=== PATIENT | male | born 1985 | race Caucasian/White ===

== ENCOUNTER → 2016-11-30 | Outpatient (CLI) | payer OTHER | LOC: BMCIMAGING 12:39 | PROVIDERS: ATTEND Family Medicine | DX: N50.89 Other specified disorders of the male genital organs (principal) ==

== ENCOUNTER 2018-07-13 21:12 | Emergency (ER) | payer BC ==
[2018-07-13] MEDS ORDERED: DIAZEPAM 5 MG TAB PO ONE (21:58)
--- NOTE | 2018-07-13 22:02 | EDPHY ---
H & P Stated Complaint: Back Pain Time Seen by Provider: 07/13/18 21:53 HPI/ROS: CHIEF COMPLAINT: Low back pain HISTORY OF PRESENT ILLNESS: Patient is a 33-year-old man who comes to the emergency department complaining of low back pain that began this morning and has worsened gradually throughout the day. He states that he does a lot of sitting at his desk and often has a stiff back. It seemed to hurt worse as he got out of the car today. No fever. No recent trauma. No numbness or weakness. No radiation of the pain down his legs. No immuno compromising conditions or practices. No saddle anesthesia. No bowel or bladder abnormalities. No dysuria or hematuria. No radiation of the pain to his abdomen or groin. Severity: Moderate Modifying factors: None REVIEW OF SYSTEMS: Constitutional: denies: chills, fever, recent illness, recent injury EENTM: denies: blurred vision, double vision, nose congestion Respiratory: denies: cough, shortness of breath Cardiac: denies: chest pain, irregular heart rate, lightheadedness, palpitations Gastrointestinal/Abdominal: denies: abdominal pain, diarrhea, nausea, vomiting, blood streaked stools Genitourinary: denies: dysuria, frequency, hematuria, pain Musculoskeletal: denies: joint pain, muscle pain Skin: denies: lesions, rash, jaundice, bruising Neurological: denies: headache, numbness, paresthesia, tingling, dizziness, weakness Hematologic/Lymphatic: denies: blood clots, easy bleeding, easy bruising Immunologic/allergic: denies: HIV/AIDS, transplant 10 systems reviewed and negative except as noted EXAM: GENERAL: Well-appearing, well-nourished and in no acute distress. HEAD: Atraumatic, normocephalic. EYES: Pupils equal round and reactive to light, extraocular movements intact, sclera anicteric, conjunctiva are normal. ENT: TMs normal, nares patent, oropharynx clear without exudates. Moist mucous membranes. NECK: Normal range of motion, supple without lymphadenopathy or JVD. LUNGS: Breath sounds clear to auscultation bilaterally and equal. No wheezes rales or rhonchi. HEART: Regular rate and rhythm without murmurs, rubs or gallops. ABDOMEN: Soft, nontender, normoactive bowel sounds. No guarding, no rebound. No masses appreciated. BACK: No CVA tenderness, no spinal tenderness, step-offs or deformities EXTREMITIES: Normal range of motion, no pitting or edema. No clubbing or cyanosis. NEUROLOGICAL: Cranial nerves II through XII grossly intact. Normal speech, normal gait is some mild pain. 5/5 strength, normal movement in all extremities , normal sensation, normal reflexes PSYCH: Normal mood, normal affect. SKIN: Warm, dry, normal turgor, no visible rashes or lesions. Source: Patient Exam Limitations: No limitations - Personal History Current Tetanus/Diphtheria Vaccine: Unsure Current Tetanus Diphtheria and Acellular Pertussis (TDAP): Unsure - Medical/Surgical History Hx Asthma: No Hx Chronic Respiratory Disease: No Hx Diabetes: No Hx Cardiac Disease: No Hx Renal Disease: No Hx Cirrhosis: No Hx Alcoholism: No Hx HIV/AIDS: No Hx Splenectomy or Spleen Trauma: No Other PMH: DENIES - Family History Significant Family History: No pertinent family hx - Social History Smoking Status: Former smoker Alcohol Use: None Constitutional: Initial Vital Signs Temperature (C) 36.7 C 07/13/18 21:15 Heart Rate 62 07/13/18 21:15 Respiratory Rate 16 07/13/18 21:15 Blood Pressure 114/66 07/13/18 21:15 O2 Sat (%) 98 07/13/18 21:15 O2 Delivery Mode Room Air Allergies/Adverse Reactions: No Known Allergies Allergy (Verified 07/13/18 21:14) Home Medications: Medication Instructions Recorded NK [No Known Home Meds] 07/13/18 Medical Decision Making - Diagnostics Imaging Results: Imaging Impressions Lumbar Spine X-Ray 07/13/18 21:59 Impression: Unremarkable lumbar spine radiograph. Imaging: Discussed imaging studies w/ manager call center Radiologist ED Course/Re-evaluation: The patient has declined his Valium. His x-rays reassuring. He will go home take ibuprofen. He is ambulating without difficulty. Discussed indications for returning. Differential Diagnosis: Partial list of the Differential diagnosis considered include but were not limited to; muscle strain, contusion and although unlikely based on the history and physical exam, I also considered radiculopathy, cauda equina, infection, cancer, fracture. I discussed these differential diagnoses and the plan with the patient as well as the usual and expected course. The patient understands that the diagnosis is provisional and that in medicine we are not always correct and that further workup is often warranted. Usual and customary warnings were given. All of the patient's questions were answered. The patient was instructed to return to the emergency department should the symptoms at all worsen or return, otherwise to followup with the physician as we discussed. - Data Points Medications Given: Discontinued Medications Diazepam (Valium) 5 mg PO EDNOW ONE Stop: 07/13/18 21:59 Last Admin: 07/13/18 22:37 Dose: Not Given Departure - Departure Disposition: Home, Routine, Self-Care Clinical Impression: Low back pain Qualifiers: Chronicity: acute Back pain laterality: bilateral Sciatica presence: without sciatica Qualified Code(s): M54.5 - Low back pain Condition: Fair Instructions: Acute Low Back Pain (ED) Referrals: NONE *PRIMARY CARE P,. [Primary Care Provider] - As per Instructions Aparna Cerna MD [Medical Doctor] - As per Instructions
[2018-07-13 22:46] VITALS: BP 110/74
== END 2018-07-13 22:45 | disposition home or self-care (01) ==
DX: M54.5 Low back pain (principal)